=== PATIENT | female | born 1940 | race Caucasian/White ===

== ENCOUNTER 2018-01-03 13:16 | Emergency (ER) | payer OTHER ==
[~2018-01-03] VITALS: Ht 154.9 cm; Wt 60.5 kg
[2018-01-03 13:20] VITALS: BP 192/87; PULSE 101; RESP 18; TEMP 97.9; O2SAT 96
[2018-01-03] MEDS ORDERED: HYPERTENSION (14:23)
[2018-01-03] MEDS ORDERED: SYNT25TA PO (14:23)
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
[2018-01-03] MEDS ORDERED: DICL75TA PO (15:03)
[2018-01-03] MEDS ORDERED: ROBA500T PO (15:03)
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
== END 2018-01-03 15:40 | disposition home or self-care (01) ==
LOC: PHED 13:16 → PHEFT 15:40
DX: S13.4XXA Sprain of ligaments of cervical spine, initial encounter (principal); V49.49XA Driver injured in collision with other motor vehicles in traffic accident, initial encounter; I10 Essential (primary) hypertension
CPT/HCPCS: 72110; 72170; 99283